=== PATIENT | male | born 1945 ===

== ENCOUNTER 2023-01-10 11:45 | Inpatient (IN) | payer OTHER ==
[~2023-01-10] VITALS: Ht 152.4 cm; Wt 57.6 kg
[2023-01-10] MEDS ORDERED: GLUMETZA500 MG PO (14:04)
[2023-01-10] MEDS ORDERED: PLAVIX75 MG PO (14:04)
[2023-01-10] MEDS ORDERED: ADULT LOW DOSE81 M1 PO (14:04)
[2023-01-10] MEDS ORDERED: TOPROL XL25 M1 PO (14:05)
[2023-01-10] MEDS ORDERED: [UNRECOGNIZED DRUG - OTHER] PO (14:05)
[2023-01-10] MEDS ORDERED: FENOFIBRATE50 MG PO (14:05)
[2023-01-10] MEDS ORDERED: GLIMEPIRIDE4 MG PO (14:06)
[2023-01-10] MEDS ORDERED: CRESTOR40 MG PO (14:07)
[2023-01-13] MEDS ORDERED: COLACE100 MG PO (07:19)
[2023-01-13] MEDS ORDERED: PERCOCET 5-3251 EACH PO (07:20)
[2023-01-13] MEDS ORDERED: MEDROLPACK PO (07:20)
== END 2023-01-14 13:33 | disposition home or self-care (01) | DRG 473 ==
LOC: O/R 01-13 04:45 → SURH 01-13 04:45 → SURG 01-13 07:00 → SURH 01-13 11:35 → SURG 01-13 11:45 → SURH 01-14 13:33
PROVIDERS: ADMIT Orthopaedic Surgery Orthopaedic Surgery of the Spine; ATTEND Orthopaedic Surgery Orthopaedic Surgery of the Spine
PROC: 0RT30ZZ Resection of Cervical Vertebral Disc, Open Approach (ICD-10-PCS; 2023-01-13)
PROC: 07DS0ZZ Extraction of Vertebral Bone Marrow, Open Approach (ICD-10-PCS; 2023-01-13)
PROC: 4A12X4Z Monitoring of Cardiac Electrical Activity, External Approach (ICD-10-PCS; 2023-01-13)
PROC: 0RG20A0 Fusion of 2 or more Cervical Vertebral Joints with Interbody Fusion Device, Anterior Approach, Anterior Column, Open Approach (ICD-10-PCS; principal; 2023-01-13 07:00)
DX: M50.021 Cervical disc disorder at C4-C5 level with myelopathy (principal); I11.9 Hypertensive heart disease without heart failure; E78.5 Hyperlipidemia, unspecified